=== PATIENT | male | born 1980 | race American Indian/Alaskan Native ===

== ENCOUNTER 2021-09-12 02:33 | Emergency (ER) | payer MEDICAID ==
[2021-09-12] MEDS ORDERED: ceFAZolin 1 GM in Premix Bag 1 BAG IV ONE (02:46)
[2021-09-12] MEDS ORDERED: Diphtheria,Pertussis(Acell),Tetanus Vaccine 0.5 ML Syringe IM ONE (02:46)
[2021-09-12] MEDS ORDERED: Sodium Chloride 0.9% 10 ML Syringe FLUSH PRN (02:46)
[2021-09-12] MEDS ORDERED: HYDROmorphone 0.5 MG/0.5 ML Syringe IVPUSH ONE (02:48)
[2021-09-12] MEDS ORDERED: ceFAZolin 1 GM Vial ONE (03:01)
[2021-09-12] MEDS ORDERED: Sodium Chloride 0.9% 50 ML ONE (03:02)
[2021-09-12 03:44] LABS: CORONAVIRUS COVID-19 NAA NEGATIVE (NEGATIVE)
== END 2021-09-12 03:45 ==
LOC: JP.ED 02:33
DX: S62.627A Displaced fracture of middle phalanx of left little finger, initial encounter for closed fracture (principal); F17.200 Nicotine dependence, unspecified, uncomplicated; F12.10 Cannabis abuse, uncomplicated; F15.10 Other stimulant abuse, uncomplicated; Z23 Encounter for immunization; Z20.822 Contact with and (suspected) exposure to COVID-19; W26.8XXA Contact with other sharp object(s), not elsewhere classified, initial encounter
CPT/HCPCS: 0241U; 36415; 80048; 85025; 90471; 90715; 93005; 93010; 96365; 96375; 99283; 99284; J0690; J1170